=== PATIENT | female | born 1935 | race Caucasian/White ===

== ENCOUNTER → 2017-01-05 | Outpatient (CLI) | payer MEDICARE, BC ==
--- NOTE | 2017-01-05 17:13 | RADRPT ---
PROCEDURE: XR Right hip and pelvis. CLINICAL INDICATION: Right hip pain and pelvic pain. TECHNIQUE: 3 views. Frontal pelvis. Frontal and lateral right hip. COMPARISON: None. FINDINGS: There is no fracture or dislocation. The soft tissues are normal. There are degenerative changes of the right hip with joint space narrowing, osteophytes, subarticula r sclerosis, subarticular cysts, and deformity. The left hip is normal. There is no lytic or blastic lesion. There are degenerative changes of the lower lumbar spine. IMPRESSION: 1. Severe degenerative changes of the right hip appear 2. Normal left hip. 3. Degenerative changes of the lower lumbar spine. RPTAT: QQ .Ken Carlson MD, Date Time Electronically viewed and signed by .Ken Carlson MD, on 01/05/2017 17:13 .R/
--- NOTE | 2017-01-06 05:14 | HKNOTE ---
DATE OF SERVICE: 01/05/2017 MAIN COMPLAINT: Right groin pain. HISTORY OF PRESENT ILLNESS: This is an 81-year-old female, who is complaining of right groin pain for the last 2 years. The pain has progressively been worsening. She has difficulty ambulating. She is using a walker for ambulation. She has had previous physical therapy and pain medications without any pain relief. She had a right hip corticosteroid injection within the last 6 months without any pain relief. The pain is constant. It is interfering with her activities of daily living. There are no alleviating factors. She has difficulty climbing stairs and sitting in a car. She denies any back pain. The pain radiates from the right groin to the right knee. PAST MEDICAL HISTORY: Grave's disease. MEDICATIONS: 1. Levothyroxine 50 mcg. 2. Atenolol 50 mg. PAST SOCIAL HISTORY: Thyroid ablation. SOCIAL HISTORY: Lives alone. Denies tobacco, alcohol, or drug use. FAMILY HISTORY: Noncontributory. ALLERGIES: NO KNOWN DRUG ALLERGIES. PHYSICAL EXAMINATION: GAIT: Antalgic gait with use of a walker. LUMBAR SPINE: Nontender over the lumbar spine. Negative straight leg raise, 50 degrees flexion and 20 degrees extension. HIPS: Right hip: 0-90 degrees of flexion, 40 degrees of external rotation, 20 degrees of internal rotation. Positive Freya's. Negative Stinchfield test. IMAGING: AP x-ray, pelvis: There is advanced degenerative joint disease of the right hip. Two-view x-rays of the right hip: There is as severe degenerative joint disease of the right hip with [id number] arthritic changes. There are marginal osteophytes with subchondral sclerosis. There are no fractures or dislocations. There is a slight right lower extremity shortening. IMPRESSION: An 81-year-old female with advanced osteoarthritis of the right hip with failed nonoperative management. PLAN: I discussed treatment options including right total hip arthroplasty, with the patient and her daughter. The patient would like to proceed with surgery. She will require preoperative medical clearance. She will return prior to surgery for consent and reevaluation. She will be scheduled for a right anterior total hip arthroplasty. Dictated By: Laura Miguel MD /dallin/ratna /Document#: [id number]
== END | disposition home or self-care (01) ==
LOC: HKI 13:54
PROVIDERS: ATTEND Orthopaedic Surgery Adult Reconstructive Orthopaedic Surgery
DX: M16.11 Unilateral primary osteoarthritis, right hip (principal); E05.00 Thyrotoxicosis with diffuse goiter without thyrotoxic crisis or storm
CPT/HCPCS: 73502; G0463

== ENCOUNTER → 2017-01-31 | Outpatient (CLI) | payer MEDICARE, BC ==
[~2017-01-31] MED LIST: ACET500C5 PO; BEN25 PO; LEVO50TA74 PO; LORA1TAB PO; METO-319 PO; TRAM50TA2 PO
--- NOTE | 2017-02-01 03:37 | HKNOTE ---
DATE OF SERVICE: 01/31/2017 CHIEF COMPLAINT: Preoperative evaluation. HISTORY OF PRESENT ILLNESS: This is an 81-year-old female who is here today for a preoperative eval uation for right total hip arthroplasty. She is complaining of pain in the right groin. She has di fficulty performing her activities of daily living. She has no other complaints. GAIT: Antalgic gait. RIGHT HIP EXAMINATION: 0 to 90 degrees range of motion, 20 degrees internal rotation, 40 degrees ex ternal rotation. Positive Freya's. Negative straight leg raise. IMPRESSION: An 81-year-old female with endstage osteoarthritis of the right hip who has failed nono perative management. PLAN: The patient is scheduled for right direct anterior total hip arthroplasty on 02/01/2017 at [facility]. Preoperative templating has been performed. I discussed the risks of surgery with the patient and her daughter, which include, but are not limit ed to, infection, deep venous thrombosis, pulmonary embolism, damage to nerves and blood vessels, im pairing function or requiring repair, instability, need for revision surgery, loosening of prosthesi s, wear of prosthesis, heart attack, stroke, need for blood transfusion, risks associated with anest hesia and even . Informed consent was obtained. All questions were answered to her satisfacti on. Dictated By: CANDIS LEOS/CHASIDY Conf#: [id number] DID#: [id number]
== END | disposition home or self-care (01) ==
LOC: HKI 13:31
PROVIDERS: ATTEND Orthopaedic Surgery Adult Reconstructive Orthopaedic Surgery
DX: Z01.818 Encounter for other preprocedural examination (principal)
CPT/HCPCS: G0463

== ENCOUNTER 2017-02-01 05:54 | Inpatient (IN) | payer MEDICARE, BC ==
[2017-01-31 10:48] VITALS: Ht 152.4 cm; Wt 57.5 kg
[~2017-02-01] VITALS: Ht 152.4 cm; Wt 57.5 kg
[2017-02-01] VITALS (24 sets, daily range): BP systolic 81–218; BP diastolic 48–96; PULSE 48–59; RESP 11–27
[2017-02-01] MEDS ORDERED: NEOSTIGMINE 3 MG/3 ML SYRINGE ONE (06:24)
[2017-02-01] MEDS ORDERED: GLYCOPYRROLATE 0.4 MG INJ ONE (06:24)
[2017-02-01] MEDS ORDERED: MIDAZOLAM 1 MG/ML 2 ML INJ ONE (06:24)
[2017-02-01] MEDS ORDERED: ROCURONIUM 50 MG INJ ONE (06:24)
[2017-02-01] MEDS ORDERED: LIDOCAINE 2% (SDV) 5 ML INJ ONE (06:24)
[2017-02-01] MEDS ORDERED: FENTAnyl 50 MCG/ML VIAL ONE (06:24)
[2017-02-01] MEDS ORDERED: PROPOFOL 20 ML ONE (06:24)
[2017-02-01] MEDS ORDERED: DEXAMETHASONE 4 MG/ML 1 ML INJ ONE (06:25)
[2017-02-01] MEDS ORDERED: ONDANSETRON 4 MG INJ ONE (06:26)
[2017-02-01] MEDS ORDERED: SUGAMMADEX SODIUM 200 MG/2 ML VIAL IV ONE (06:26)
[2017-02-01] MEDS ORDERED: CEFAZOLIN 2 GM/50 ML (PMX) 50 ML IVPB ONE (06:30)
[2017-02-01] MEDS ORDERED: DEXAMETHASONE 4 MG/ML 1 ML INJ IV ONE (06:30)
[2017-02-01] MEDS ORDERED: ATROPINE 1 MG/10 ML SYRINGE IV PRN (06:30)
[2017-02-01] MEDS ORDERED: MEPERIDINE 25 MG INJ IV PRN (06:30)
[2017-02-01] MEDS ORDERED: ONDANSETRON 4 MG INJ IV ONE (06:30)
[2017-02-01] MEDS ORDERED: DIPHENHYDRAMINE 50 MG INJ IV PRN (06:30)
[2017-02-01] MEDS ORDERED: HYDROmorphONE (0.2 MG/ML) 10ML SYG IV PRN ×3 (06:30)
[2017-02-01] MEDS ORDERED: TRANEXAMIC ACID 1,000 MG in SOD CHLORIDE 0.9% 100 ML IV ONE (06:30)
[2017-02-01] MEDS ORDERED: EPHEDrine SULFATE 50 MG/5 ML SYG IV PRN (06:30)
[2017-02-01] MEDS ORDERED: CELECOXIB 200 MG CAP PO ONE (06:30)
[2017-02-01] MEDS ORDERED: LANSOPRAZOLE 30 MG CAP PO ONE (06:30)
[2017-02-01] MEDS ORDERED: ONDANSETRON 4 MG INJ IV PRN (06:30)
[2017-02-01] MEDS ORDERED: LABETALOL HCL 20MG INJ IV PRN (06:30)
[2017-02-01] MEDS ORDERED: oxyCODONE (CR) 10 MG TAB [oxyCONTIN] PO ONE (06:30)
[2017-02-01] MEDS ORDERED: FENTAnyl 50 MCG/ML VIAL IV PRN ×2 (06:30)
[2017-02-01] MEDS ORDERED: MIDAZOLAM 1 MG/ML 2 ML INJ IV PRN (06:30)
[2017-02-01] MEDS ORDERED: morphine (1 MG/ML) 10ML SYRINGE IV PRN ×3 (06:30)
[2017-02-01] MEDS ORDERED: hydrALAzine 20 MG INJ IV PRN (06:30)
[2017-02-01] MEDS ORDERED: OXYCODONE/ACETAMINOPHEN (5/325) TAB PO PRN ×2 (06:30)
[2017-02-01] MEDS ORDERED: ACETAMINOPHEN 1000MG/100ML IV 100 ML IVPB ONE (06:30)
[2017-02-01] MEDS ORDERED: SODIUM CL BACTERIOSTATIC 30 ML INJ ONE (06:33)
[2017-02-01] MEDS ORDERED: POLYMYXIN B 500000 UNIT INJ ONE (06:33)
[2017-02-01] MEDS ORDERED: KETOROLAC 30 MG INJ ONE (06:34)
[2017-02-01] MEDS ORDERED: morphine SULFATE/PF (10 MG/10 ML) INJ ONE (06:34)
[2017-02-01] MEDS ORDERED: BACITRACIN 50000 UNITS INJ ONE (06:37)
[2017-02-01] MEDS ORDERED: POLYMYXIN/BACITRACIN 1L IRRIG ONE (06:37)
[2017-02-01] MEDS ORDERED: ROPIVACAINE 0.2% 60 ML, morphine SULFATE (PF) 4 MG, CLONIDINE 100 MCG, EPINEPHrine 0.3 MG INJ SCH ×7 (07:00)
[2017-02-01] MEDS ORDERED: CEFAZOLIN 1 GM INJ ONE (07:00)
[2017-02-01] MEDS ORDERED: PROPOFOL 100 ML ONE (07:09)
--- NOTE | 2017-02-01 07:25 | HPN ---
Date/Time of Note Date/Time of Note DATE: 02/01/17 TIME: 07:25 Interval H&P Admission Note Pt. seen H&P reviewed: No system changes DARA GARZA PA-C Feb 01, 2017 07:25
[2017-02-01] MEDS ORDERED: TRANEXAMIC ACID IRR ONE (07:30)
[2017-02-01] MEDS ORDERED: SOD CHLORIDE 0.9% IRR ONE (07:30)
[2017-02-01] MEDS ORDERED: hydrALAzine 20 MG INJ ONE (07:45)
[2017-02-01] MEDS ORDERED: METO-319 PO (07:49)
[2017-02-01] MEDS ORDERED: TRAM50TA2 PO (07:49)
[2017-02-01] MEDS ORDERED: LEVO50TA74 PO (07:49)
[2017-02-01] MEDS ORDERED: ACET500C5 PO (07:49)
[2017-02-01] MEDS ORDERED: BEN25 PO (07:49)
[2017-02-01] MEDS ORDERED: LORA1TAB PO (07:49)
[2017-02-01] MEDS ORDERED: FUROSEMIDE 20 MG INJ ONE (09:30)
[2017-02-01] MEDS ORDERED: LIDOCAINE 4% CR ONE (09:37)
--- NOTE | 2017-02-01 10:22 | SIPON ---
Date/Time of Note Date/Time of Note DATE: 02/01/17 TIME: 10:19 Operative Report Preoperative Diagnosis Right hip osteoarthritis Postoperative Diagnosis Same Operation/Procedure Performed 1. Right total hip arthroplasty Surgeon MD Myriam kennel assistant Mahesh Graham Second assist: DARA GARZA PA-C Anesthesia: general Estimated blood loss: 200 - 250 ml's Transfusion Required none Specimen Resected Bone Grafts/Implants Depuy 48 mm acetabulum, 25mm screw, 32mm liner, size Corail stem, 32mm biolox delta ceramic femoral head Complications none CANDIS MONTES MD Feb 01, 2017 10:22
[2017-02-01] MEDS ORDERED: BISACODYL 10 MG SUPP PR PRN (10:30)
[2017-02-01] MEDS ORDERED: MEPERIDINE 10 MG/ML 30 ML PCA IV PRN (10:30)
[2017-02-01] MEDS ORDERED: NA PHOSPHATE/BIPHOS 133 ML ENEMA PR PRN (10:30)
[2017-02-01] MEDS ORDERED: oxyCODONE 5 MG TAB PO PRN ×2 (10:30)
[2017-02-01] MEDS ORDERED: BETHANECHOL 25 MG TAB PO PRN (10:30)
[2017-02-01] MEDS ORDERED: NALOXONE (0.4 MG/ML) INJ IV PRN (10:30)
[2017-02-01] MEDS ORDERED: MAGNESIUM HYDROXIDE 30ML CUP PO PRN (10:30)
[2017-02-01] MEDS ORDERED: ZOLPIDEM 5 MG TAB PO PRN (10:30)
[2017-02-01] MEDS ORDERED: ASPIRIN (EC) 325 MG TAB PO ONE ×2 (10:30→11:03)
[2017-02-01] MEDS ORDERED: SENNA/DOCUSATE NA (8.6MG/50MG) TAB PO PRN (10:30)
[2017-02-01] MEDS ORDERED: DIPHENHYDRAMINE 50 MG INJ IM PRN (10:30)
[2017-02-01] MEDS ORDERED: HYDROmorphONE 0.2 MG/ML PCA IV PRN (10:30)
[2017-02-01] MEDS ORDERED: NACL 0.9% 3 ML SYG IV SCH (10:30)
[2017-02-01] MEDS ORDERED: DOCUSATE SODIUM 100 MG CAP PO ONE ×2 (10:30→11:03)
--- NOTE | 2017-02-01 10:32 | PDOCDIS ---
Discharge Instructions DIAGNOSIS Discharge Diagnosis Status post right total hip arthroplasty via anterior row CONDITION Patient Condition: Good HOME CARE INSTRUCTIONS: Diet Instructions: Regular ACTIVITY: Activity Restrictions: Slowly Increase Activity Rest between Activity Avoid heavy lifting No Sexual Activity Do not Drive Do not operate Machinery Do not operate Power Tool Avoid Heavy Housework Keep Limb Elevated (Ice modalities while at rest.) Weight Bearing (As tolerated using front wheeled walker) Bathing Restrictions: Shower (Make sure the area is covered with no water introduction until seen at postoperative visit with Dr. Jimenez.) FOLLOW UP/APPOINTMENTS Follow-up Plan Follow-up in 10-14 days at postoperative appointment provided at your preoperative examination. DARA GARZA PA-C Feb 01, 2017 10:32
[2017-02-01] MEDS ORDERED: CEFAZOLIN 1 GM/50 ML (PMX) 50 ML IVPB ONE (11:03)
[2017-02-01] MEDS: ACETAMINOPHEN 1000MG/100ML IV 100 ML IVPB SCH ×2 (11:16→17:49)
[2017-02-01] MEDS: ONDANSETRON 4 MG INJ IV SCH ×3 (11:17→22:59)
[2017-02-01] MEDS: CEFAZOLIN 1 GM/50 ML (PMX) 50 ML IVPB SCH ×2 (11:17→17:52)
[2017-02-01] MEDS ORDERED: TRANEXAMIC ACID 580 MG in SOD CHLORIDE 0.9% 100 ML IVPB ONE ×2 (13:30→16:30)
[2017-02-01] MEDS: DEXTROSE 5%-LR 1,000 ML IV SCH ×2 (13:57→22:52)
--- NOTE | 2017-02-01 16:41 | RADRPT ---
PROCEDURE: XR RIGHT HIP. CLINICAL INDICATION: Hip pain TECHNIQUE: 2 views of the right hip were performed. COMPARISON: January 05, 2017 FINDINGS: There is no evidence of acute fracture dislocation of the right hip. Status post right hip total art hroplasty, with near anatomic alignment. Adjacent postsurgical changes are noted. There is soft tiss ue swelling and subcutaneous air. The adjacent pubic ramus is within normal limits. IMPRESSION: 1. Status post right hip arthroplasty, with near anatomic alignment. Postsurgical changes are noted. RPTAT: AAPP Physician Jorge A Date Time Electronically viewed and signed by Physician Jorge A on 02/01/2017 16:41 GINO/
--- NOTE | 2017-02-01 16:54 | RADRPT ---
PROCEDURE: Pelvis radiographs CLINICAL INDICATION: Postoperative evaluation. COMPARISON: None relevant listed. TECHNIQUE: Single frontal AP view of the pelvis was performed. FINDINGS: Subcutaneous emphysema and swelling about a new right hip arthroplasty. Alignment of the total hip arthroplasty is anatomic. Trevino catheter. Nonoperative joint spaces are preserved. The sacroiliac joints are intact. No localized soft tissue swelling. IMPRESSION: Anatomic alignment of new right total hip arthroplasty. RPTAT: EE Physician Naheed Date Time Electronically viewed and signed by Physician Naheed on 02/01/2017 16:54 LG/
--- NOTE | 2017-02-01 18:01 | RADRPT ---
PROCEDURE: Intraoperative imaging of the right hip with fluoroscopy. CLINICAL INDICATION: Right hip pain. Intraoperative. TECHNIQUE: 8 images of the right hip were obtained in the operating room with an image intensifier . No radiologist was in attendance. 0.4 minutes of fluoroscopy time was used. COMPARISON: 01/05/2017. FINDINGS: Images demonstrate placement of a total right hip arthroplasty. IMPRESSION: 1. Satisfactory intraoperative imaging of the right hip. RPTAT: QQ .Ken Carlson MD, MD Date Time Electronically viewed and signed by .Ken Carlson MD, on 02/01/2017 18:01 .R/
[2017-02-01] MEDS: LORAZEPAM 1 MG TAB PO PRN (19:49)
[2017-02-01] MEDS: GABAPENTIN 100 MG CAP GTB SCH (22:59)
[2017-02-02] MEDS: ACETAMINOPHEN 1000MG/100ML IV 100 ML IVPB SCH ×3 (01:55→16:26)
[2017-02-02] MEDS: CEFAZOLIN 1 GM/50 ML (PMX) 50 ML IVPB SCH (02:28)
[2017-02-02 05:19] LABS: BASOPHILS % 0.1 % (0.0-2.0); EOSINOPHILS % 0.1 % (0.0-7.0); HEMATOCRIT 28.5 % (37.0-47.0); HEMOGLOBIN 9.5 g/dl (12.0-16.0); LYMPHOCYTES # 1.5 10^3/ul (0.8-2.9); LYMPHOCYTES % 12.7 % (15.0-51.0); MEAN CORPUSCULAR HEMOGLOBIN 30.8 pg (29.0-33.0); MEAN CORPUSCULAR HGB CONC 33.3 g/dl (32.0-37.0); MEAN CORPUSCULAR VOLUME 92.5 fl (82.0-101.0); MEAN PLATELET VOLUME 11.5 fl (7.4-10.4); MONOCYTE # 1.2 10^3/ul (0.3-0.9); MONOCYTES % 10.7 % (0.0-11.0); NEUTROPHIL # 8.8 10^3/ul (1.6-7.5); PLATELET COUNT 255 10^3/UL (140-415); RED BLOOD COUNT 3.08 10^6/ul (4.20-5.40); RED CELL DISTRIBUTION WIDTH 13.9 % (11.5-14.5); WHITE BLOOD COUNT 11.5 10^3/ul (4.8-10.8)
[2017-02-02] MEDS: ONDANSETRON 4 MG INJ IV SCH (05:45)
[2017-02-02] MEDS: PANTOPRAZOLE (EC) 40 MG TAB PO SCH (05:45)
[2017-02-02] MEDS: DEXTROSE 5%-LR 1,000 ML IV SCH ×2 (05:56→23:52)
[2017-02-02] MEDS ORDERED: KETOROLAC 15 MG INJ INJ PRN (06:00)
[2017-02-02] MEDS ORDERED: BUPIVACAINE 0.25%/EPI (SDV) 30 ML INJ INJ PRN (06:00)
[2017-02-02 06:03] LABS: ALBUMIN 3.5 g/dl (3.3-4.9); ALBUMIN/GLOBULIN RATIO 1.29; BILIRUBIN,INDIRECT 0.4 mg/dl (0-1.1); BILIRUBIN,TOTAL 0.4 mg/dl (0.2-1.3); CALCIUM 8.7 mg/dl (8.4-10.2); CREATININE 0.57 mg/dl (0.44-1.00); POTASSIUM 3.6 mmol/L (3.5-5.1); TOTAL PROTEIN 6.2 g/dl (6.1-8.1)
[2017-02-02] MEDS: LEVOTHYROXINE 50 MCG TAB PO SCH (06:20)
[2017-02-02] MEDS: DEXAMETHASONE 4 MG/ML 1 ML INJ IV SCH (06:30)
[2017-02-02 07:30] VITALS: BP 141/67; RESP 19
--- NOTE | 2017-02-02 07:51 | PN ---
Date/Time of Note Date/Time of Note DATE: 02/02/17 TIME: 07:49 Assessment/Plan VTE Prophylaxis VTE Prophylaxis Intervention: ambulation, SCD's, other (Aspirin 325 mg twice daily) Lines/Catheters IV Catheter Type (from Nrs): Peripheral IV Trevino in Place (from Nrsg): Yes Assessment/Plan Assessment/Plan -Pain Meds as needed -ASA for DVT Prophylaxis x 6 weeks outpatient discussed. -Continue monitoring as outpatient on discharge -Follow-up at scheduled postop outpatient appointment or sooner if there is any issue. -Hip precautions discussed -Patient Stable -Discharge to Home with home health provided by [facility] Subjective 24 Hr Interval Summary 81-year-old female postop day 1 status post right total hip arthroplasty via anterior route. Patient was doing okay. Experiencing pain immediately postoperatively but now complains of no pain. Patient has been up and walking with use of front wheeled walker. Denies any chest pain/tightness. Denies any calf pain. Doing well with plans to be discharged home today. Constitutional: no complaints Pain Control: well controlled Exam/Review of Systems Vital Signs Vitals Vital Signs Date Time Temp Pulse Resp B/P Pulse Ox O2 Delivery O2 Flow Rate FiO2 02/02/17 07:30 98.0 61 19 141/67 98 02/01/17 15:10 Room Air 02/01/17 11:38 2.0 Intake and Output 02/01/17 02/01/17 02/02/17 15:00 23:00 07:00 Intake Total 1990 ml 550 ml 150 ml Output Total 650 ml 300 ml Balance 1340 ml 250 ml 150 ml Exam Free Text/Dictation -No complications with dressing intact. -Thigh soft -5/5 Quadriceps, Tibialis Anterior, EHL Gastrocnemius/Soleus and Peroneals -Normal Sensation -Palpable DP/PT, Capillary Refill <2 secs -No Distal Edema -Negative Johny Sign/No calf pain -Toes Freely Movable Constitutional: alert Results Result Diagram: 02/02/17 0440 02/02/17 0438 DARA GARZA PA-C Feb 02, 2017 07:51
--- NOTE | 2017-02-02 08:38 | CONS ---
DATE OF ADMISSION: 02/01/2017 DATE OF CONSULTATION: MEDICAL CONSULTATION Thank you, Dr. Miguel, for asking me to participate in medical management of this patient. REASON FOR CONSULTATION: To manage the patient's hypertension and hypothyroidism. HISTORY OF PRESENT ILLNESS: This 81-year-old female was admitted today and underwent a right total hip replacement. The patient was having increasing pain in the right groin area and was diagnosed w ith severe osteoarthritis. She was having difficulty walking. She decided to undergo a total hip r eplacement. The patient is now postop. She is awake and alert. She denies any chest pain or short ness of breath. There is a note on the chart from Dr. Steffen Umanzor, her school childcare attendant, this detail s the patient's past medical history. PAST MEDICAL HISTORY: Labile hypertension, generalized anxiety disorder, history of Graves' disease , osteoporosis, history of shingles. CURRENT MEDICATIONS: Include the followin. Benadryl 25 mg every 6 hours as needed for itching. 2. Metoprolol XL 50 mg a day. 3. Acetaminophen p.r.n. pain. 4. Lorazepam 1 mg p.o. b.i.d. p.r.n. anxiety. 5. Tramadol 50 mg every 6 hours p.r.n. pain. 6. Levothyroxine 50 mcg a day. SOCIAL HISTORY: The patient is . ALLERGIES: NO KNOWN DRUG ALLERGIES. PHYSICAL EXAMINATION: GENERAL: At this time, reveals a well-developed female in no apparent distress. VITAL SIGNS: Blood pressure 117/56, pulse of 55, O2 sat is 100% on 2 liters nasal cannula. HEAD: Normocephalic. EYES: Extraocular muscles intact. NOSE AND MOUTH: Normal. NECK: Supple. No neck vein distention. LUNGS: Clear to auscultation. HEART: Regular rhythm. No murmurs, gallops or rubs. ABDOMEN: Soft, nontender, no masses or megaly. EXTREMITIES: No peripheral edema. IMPRESSION: This patient is stable after surgery today. She does have a history of labile hyperten mannie. She did take her metoprolol this morning. I will hold the dose of metoprolol for now because her blood pressure is now low normal. She is tolerating this without a problem. I will manage the patient's hypertension and hypothyroidism. PLAN: 1. Resume some routine medications. 2. Check labs in the morning. 3. Postop total hip replacement protocol. 4. I will follow the patient along with you. Dictated By: ADRIA MELO MD, ND/CHASIDY Conf#: [id number] DID#: [id number] CC: CANDIS MIGUEL MD;*EndCC*
--- NOTE | 2017-02-02 08:40 | OPR ---
DATE OF OPERATION: 02/01/2017 PREOPERATIVE DIAGNOSIS: Right hip osteoarthritis. POSTOPERATIVE DIAGNOSIS: Right hip osteoarthritis. PROCEDURES PERFORMED: 1. Right total hip arthroplasty. CPT code 43365. 2. Computer assisted navigational procedure, CPT code 22280. 3. Interpretation of AP x-ray. 4. Interpretation of right hip, 2 views. SURGEON: Candis Miguel. FINISH SANDER: 1. JESUS Adam 2. Mahesh Graham. ANESTHESIOLOGIST: Dr. Heller. ANESTHESIA: Spinal with general. ESTIMATED BLOOD LOSS: 300 mL. COMPLICATIONS: None. SPECIMENS: Resected bone. DISPOSITION: PACU in stable condition. IMPLANT USED: A DePuy Corail size 10 stem, 32 mm +1 Biolox Delta ceramic femoral head, 48 mm acetabular screws, 32 mm liner, 25 mm cancellous screw. COMPLICATIONS: None. DISPOSITION: To PACU in stable condition. INDICATION FOR PROCEDURE: This is an 81-year-old female with endstage osteoarthritis of the right hip who had failed nonoperative management. Risks, benefits, alternatives of surgical intervention were discussed with the patient and informed consent was obtained. The risks of surgery include but are not limited to infection, deep venous thrombosis, pulmonary embolism, leg length discrepancy, fracture, damage to neurovascular structures requiring repair, loosening of the prosthesis, wear of prosthesis, need for revision surgery, heart attack, stroke, need for blood transfusion, risks associated with anesthesia and even . DESCRIPTION OF PROCEDURE: The patient was met in the preoperative suite and the correct operative site was confirmed and marked. Patient was then brought into operating room. After induction of general anesthesia, she was placed in the supine position on the table. The right lower extremity was prepped and draped in the usual sterile fashion. Before starting, a timeout was taken to identify the correct operative site and confirm the preoperative antibiotics consisting of 1 gram of IV Ancef, along with 1 gram of tranexamic acid were administered. At this point, an 8 cm incision was made approximately 2 cm lateral and 1 cm distal to the ASIS. The incision was carried down to the fascia. The fascia was then incised. Then, 2 Allis clamps were placed. The interval was then bluntly developed and the tensor fascia noe was then retracted laterally. The lateral circumflex vessels were identified and coagulated. The anterior capsule was then visualized and a capsulotomy was performed. At this point, markings were made for the napkin ring osteotomy of the femoral neck. Using the saw the initial osteotomy was then made and completed with the use of an osteotome. A Brandi was then used to remove the napkin ring and a corkscrew was then placed in the femoral head and the head was then removed. The head was sized to 43 mm. Sequential reaming was begun with a 43 mm reamer, going up to a 47 mm reamer. A trial 48 mm cup was then impacted and the radlink was then used to determine the appropriate anteversion and abduction of the cup. The cup was noted to be in approximately 37 mm of inclination and 37 degrees of inclination and 21 degrees of anteversion and the trial was then removed. The appropriate size cup was then placed and again the radlink was used to determine the inclination and anteversion. At this point, a 25 mm screw was then placed in the posterior superior quadrant. The 32 mm liner was then impacted into place and the final acetabular x-rays were taken which again demonstrated the cup to be in appropriate abduction and anteversion. At this point, the femoral lift was then used and the right leg was then placed in external rotation, 8 extension, and adduction. Retractors were placed and the femoral releases were performed using a box osteotome followed by a canal finder. Sequential broaching was begun with a 0 broach going up to a size 10 broach. The trial 10 mm standard offset stem along with a 32 mm +1 trial head and neck were placed. The hip was then reduced and taken through range of motion, noted to be stable in extension and external rotation of up to 110 degrees. X-RAYS: AP x-rays of the pelvis and right hip, 2 view x-rays were taken. The x -rays demonstrated the prosthesis to be in the correct position with equal leg lengths. The trial components were then removed. The appropriate sized components were then placed. The hip was again reduced with unchanged stability and equal leg lengths and no fractures were seen. The hip was again taken through range of motion and noted to be stable to extension and external rotation. The wound was then thoroughly irrigated. The capsule and the fascia were closed using #1 Vicryl. The subcutaneous tissue was closed using 0 Vicryl and the skin with 4-0 Monocryl in subcuticular fashion and Steri-Strips were applied. There were no complications. Patient was awakened and taken to postoperative care unit in stable condition. Prior to transfer. she was noted to have equal leg lengths and a palpable dorsalis pedis pulse. POSTOPERATIVE CARE: Patient will be weightbearing as tolerated. She will work with physical therapy. She will receive two additional doses of IV Ancef along with aspirin 325 mg p.o. b.i.d. for 6 weeks. She will have SCDs while in the hospital. Upon discharge, she will follow up in my office within 2 weeks postoperatively. She will receive multimodal pain management. Dictated By: CANDIS LEOS/CHASIDY Conf#: [id number] DID#: [id number] MTDD
[2017-02-02] MEDS: CELECOXIB 200 MG CAP PO SCH ×2 (09:00→21:00)
[2017-02-02] MEDS: GABAPENTIN 100 MG CAP GTB SCH ×2 (09:27→21:00)
[2017-02-02] MEDS: FERROUS FUMARATE (SR) TAB PO SCH ×2 (09:27→21:00)
[2017-02-02] MEDS: ASPIRIN (EC) 325 MG TAB PO SCH ×2 (09:27→21:00)
[2017-02-02] MEDS: DOCUSATE SODIUM 100 MG CAP PO SCH ×2 (09:27→21:00)
[2017-02-02] MEDS: oxyCODONE 5 MG TAB PO PRN ×2 (09:36→10:40)
--- NOTE | 2017-02-02 09:53 | CONS ---
Date/Time of Note Date/Time of Note DATE: 02/02/17 TIME: 09:51 Assessment/Plan Assessment/Plan Chief Complaint/Hosp Course 1. This patient is now one day postop a right total hip replacement. She is doing well. She will have physical therapy as tolerated. 2. Labile hypertension. I will cautiously restart her on metoprolol XL 25 mg a day for now and monitor blood pressure and pulse. 3. Hypothyroidism. She is on thyroid supplements. Problems: Consultation Date/Type/Reason Admit Date/Time Feb 01, 2017 at 05:54 Initial Consult Date 24 HR Interval Summary Free Text/Dictation This patient is now one day postop a right total hip replacement. She is awake and alert. Constitutional: improved, no complaints Exam/Review of Systems Vital Signs Vitals Vital Signs Date Time Temp Pulse Resp B/P Pulse Ox O2 Delivery O2 Flow Rate FiO2 02/02/17 07:30 98.0 61 19 141/67 98 02/01/17 15:10 Room Air 02/01/17 11:38 2.0 Intake and Output 02/01/17 02/01/17 02/02/17 15:00 23:00 07:00 Intake Total 1990 ml 550 ml 150 ml Output Total 650 ml 300 ml Balance 1340 ml 250 ml 150 ml Exam Constitutional: alert, frail, oriented Neck: non-tender, supple Respiratory: clear to auscultation, normal air movement Cardiovascular: regular rate and rhythm Gastrointestinal: non-tender, soft Musculoskeletal: nl extremities to inspection Results Result Diagram: 02/02/17 0440 02/02/17 0438 Results 24 hrs Laboratory Tests Test 02/02/17 04:38 02/02/17 04:40 Sodium Level 138 Potassium Level 3.6 Chloride Level 104 Carbon Dioxide Level 25 Anion Gap 13 Blood Urea Nitrogen 10 Creatinine 0.57 Glucose Level 116 Calcium Level 8.7 Total Bilirubin 0.4 Direct Bilirubin 0.00 Indirect Bilirubin 0.4 Aspartate Amino Transf (AST/SGOT) 45 Alanine Aminotransferase (ALT/SGPT) 31 Alkaline Phosphatase 67 Total Protein 6.2 Albumin 3.5 Globulin 2.70 Albumin/Globulin Ratio 1.29 White Blood Count 11.5 H Red Blood Count 3.08 L Hemoglobin 9.5 L Hematocrit 28.5 L Mean Corpuscular Volume 92.5 Mean Corpuscular Hemoglobin 30.8 Mean Corpuscular Hemoglobin Concent 33.3 Red Cell Distribution Width 13.9 Platelet Count 255 Mean Platelet Volume 11.5 H Neutrophils % 76.0 Lymphocytes % 12.7 L Monocytes % 10.7 Eosinophils % 0.1 Basophils % 0.1 Nucleated Red Blood Cells % 0.0 Neutrophils # 8.8 H Lymphocytes # 1.5 Monocytes # 1.2 H Eosinophils # 0.0 Basophils # 0.0 Nucleated Red Blood Cells # 0.0 Medications Medications Current Medications Dextrose/Lactated Ringer's (D5-Lr) 1,000 ml @ 80 mls/hr [id number] IV Last administered on 02/02/17 05:56; Admin Dose 80 MLS/HR; Start 02/01/17 at 10:22 Hydromorphone HCl (Dilaudid FOREMAN/PILE DRIVING AND ERECTION) Q4PCA PRN IV SEVERE PAIN 8-10; Start at 10:30; Stop 02/02/17 at 10:29 Meperidine HCl (Demerol FOREMAN/PILE DRIVING AND ERECTION) Q4PCA PRN IV SEVERE PAIN 8-10; Start 02/01/17 at 10:30; Stop 02/02/17 at 10:29; Status Future Hold Oxycodone HCl (Roxicodone) 20 mg Q3H PRN PO PAIN LEVEL 8-10; Start 02/01/17 at 10:30 Oxycodone HCl (Roxicodone) 10 mg Q3H PRN PO PAIN LEVEL 4-7; Start 02/01/17 at 10:30 Oxycodone HCl 5 mg 5 mg Q3H PRN PO PAIN LEVEL 1-3 Last administered on 09:36; Admin Dose 5 MG; Start 02/01/17 at 10:30 Acetaminophen (Ofirmev 1000mg/ 100ml Iv) 100 ml @ 400 mls/hr Q8H IVPB Last administered on 02/02/17 01:55; Admin Dose 400 MLS/HR; Start 02/01/17 at 10: 30; Stop 02/03/17 at 02:44 Zolpidem Tartrate (Ambien) 5 mg HS PRN PO INSOMNIA; Start 02/01/17 at 10:30 Aspirin (Ecotrin) 325 mg BID PO Last administered on 02/02/17 09:27; Admin Dose 325 MG; Start 02/02/17 at 09:00 Celecoxib (Celebrex) 200 mg BID PO ; Start 02/02/17 at 09:00 Dexamethasone (Decadron) 4 mg DAILY@07 IV ; Start 02/02/17 at 07:00; Stop at 06:59 Pantoprazole (Protonix Tab) 40 mg DAILY@06 PO Last administered on 02/02/17 05:45; Admin Dose 40 MG; Start 02/02/17 at 06:00 Docusate Sodium/ Ferrous Fumarate (Ron-Sequels) 1 tab BID PO Last administered on 02/02/17 09:27; Admin Dose 1 TAB; Start 02/02/17 at 09:00 Docusate Sodium (Colace) 200 mg BID PO Last administered on 02/02/17 09:27; Admin Dose 200 MG; Start 02/02/17 at 09:00; Stop 02/04/17 at 21:01 Simethicone (Mylicon) 80 mg TID PRN PO DISTENSION/GAS/BLOATING; Start at 10:30 Senna/Docusate Sodium (Senokot-S) 2 tab BID PRN PO CONSTIPATION; Start at 10:30 Magnesium Hydroxide (Milk Of Mag) 30 ml HS PRN PO CONSTIPATION; Start at 10:30 Bisacodyl (Dulcolax Supp) 10 mg DAILY PRN MD CONSTIPATION; Start 02/01/17 at 10:30 Sodium Biphosphate/ Sodium Phosphate (Fleet Enema) 133 ml DAILY PRN MD CONSTIPATION; Start 02/01/17 at 10:30 Diphenhydramine HCl (Benadryl) 25 mg Q4H PRN IM ITCHING OR RASH; Start at 10:30 Ketorolac Tromethamine (Toradol) 15 mg DAILY@06 PRN INJ ADMINSTER BY SURGEON ONLY; Start 02/02/17 at 06:00; Stop 02/06/17 at 05:59 Bupivacaine HCl/ Epinephrine Bitart (Marcaine 0.25%/ Epi (Sdv) 30 ml) 20 ml DAILY@06 PRN INJ ADMINSTER BY SURGEON ONLY; Start 02/02/17 at 06:00; Stop at 05:59 Naloxone HCl (Narcan) 0.2 mg Q2M PRN IV DECREASED REPIRATORY RATE; Start at 10:30 Gabapentin (Neurontin) 100 mg BID GTB Last administered on 02/02/17 09:27; Admin Dose 100 MG; Start 02/01/17 at 21:00; Stop 02/04/17 at 20:59 Influenza Virus Vaccine (Fluzone) 0.5 ml ONCE ONCE IM* ; Start 02/02/17 at 12: 30; Stop 02/02/17 at 12:31 Lorazepam (Ativan) 1 mg BID PRN PO ANXIETY Last administered on 02/01/17 19: 49; Admin Dose 1 MG; Start 02/01/17 at 13:30 ADRIA MELO MD Feb 02, 2017 09:53
[2017-02-02] MEDS ORDERED: METOPROLOL (XL) 25 MG TAB PO SCH (10:00)
[2017-02-02] MEDS ORDERED: INFLUENZA VIRUS VACCINE 0.5 ML SYG IM* ONE (12:30)
[2017-02-02] MEDS: LORAZEPAM 1 MG TAB PO PRN (14:07)
[2017-02-03] MEDS: traMADol 50 MG TAB PO PRN ×2 (00:54→22:16)
[2017-02-03] MEDS: ACETAMINOPHEN 1000MG/100ML IV 100 ML IVPB SCH ×3 (02:24→13:00)
[2017-02-03] MEDS: PANTOPRAZOLE (EC) 40 MG TAB PO SCH (05:44)
[2017-02-03] MEDS: LEVOTHYROXINE 50 MCG TAB PO SCH (05:44)
[2017-02-03 05:49] LABS: BASOPHILS % 0.1 % (0.0-2.0); EOSINOPHILS % 0.1 % (0.0-7.0); HEMATOCRIT 26.8 % (37.0-47.0); HEMOGLOBIN 8.9 g/dl (12.0-16.0); LYMPHOCYTES # 0.9 10^3/ul (0.8-2.9); LYMPHOCYTES % 8.9 % (15.0-51.0); MEAN CORPUSCULAR HEMOGLOBIN 31.2 pg (29.0-33.0); MEAN CORPUSCULAR HGB CONC 33.2 g/dl (32.0-37.0); MEAN PLATELET VOLUME 11.7 fl (7.4-10.4); MONOCYTES % 9.6 % (0.0-11.0); NEUTROPHIL # 8.5 10^3/ul (1.6-7.5); NEUTROPHILS % 80.7 % (39.0-77.0); PLATELET COUNT 235 10^3/UL (140-415); RED BLOOD COUNT 2.85 10^6/ul (4.20-5.40); WHITE BLOOD COUNT 10.6 10^3/ul (4.8-10.8)
[2017-02-03] MEDS: DEXAMETHASONE 4 MG/ML 1 ML INJ IV SCH (06:47)
--- NOTE | 2017-02-03 07:58 | PN ---
Date/Time of Note Date/Time of Note DATE: 02/03/17 TIME: 07:56 Assessment/Plan VTE Prophylaxis VTE Prophylaxis Intervention: ambulation, SCD's, other (Aspirin 325 mg twice daily) Lines/Catheters IV Catheter Type (from Nrsg): Peripheral IV Trevino in Place (from Nrsg): Yes Assessment/Plan Assessment/Plan -Pain Meds as needed -ASA for DVT Prophylaxis x 6 weeks outpatient discussed. -Continue monitoring as outpatient on discharge -Follow-up at scheduled postop outpatient appointment or sooner if there is any issue. -Hip precautions discussed -Patient Stable -Discharge to SNF Subjective 24 Hr Interval Summary 81-year-old female postop day 2 status post right total hip arthroplasty via anterior route. Patient has episodes of increased pain and episodes of relatively no pain complaints. Patient does state that she is very nervous with the whole process of surgery and rehabilitation. She denies any chest pain /tightness or shortness of breath. No calf pain. Has been continuing with PT and progressing. It was deemed that patient should be transferred to [facility] facility as opposed to returning home with home health due to lack of help in the house. Expected transfer today. Pain Control: moderate Exam/Review of Systems Vital Signs Vitals Vital Signs Date Time Temp Pulse Resp B/P Pulse Ox O2 Delivery O2 Flow Rate FiO2 02/02/17 07:30 98.0 61 19 141/67 98 02/01/17 15:10 Room Air 02/01/17 11:38 2.0 Intake and Output 02/02/17 02/02/17 02/03/17 15:00 23:00 07:00 Intake Total 160 ml 1840 ml 340 ml Balance 160 ml 1840 ml 340 ml Exam Free Text/Dictation -No complications with dressing intact. -Thigh soft -5/5 Quadriceps, Tibialis Anterior, EHL Gastrocnemius/Soleus and Peroneals -Normal Sensation -Palpable DP/PT, Capillary Refill <2 secs -No Distal Edema -Negative Johny Sign/No calf pain -Toes Freely Movable Constitutional: alert, oriented, well developed Results Result Diagram: 02/03/17 0503 02/02/17 0438 DARA GARZA PA-C Feb 03, 2017 07:58
[2017-02-03 08:37] VITALS: BP 134/68; RESP 19
--- NOTE | 2017-02-03 08:48 | CONS ---
Date/Time of Note Date/Time of Note DATE: 02/03/17 TIME: 08:45 Assessment/Plan Assessment/Plan Chief Complaint/Hosp Course 1. This patient is now two days postop a right total hip replacement. She is doing well. She will be transferred to a alf facility today. 2. Labile hypertension. Her blood pressure is coming under control. She will continue her current preop medication. 3. Hypothyroidism. She is on thyroid supplements. Problems: Consultation Date/Type/Reason Admit Date/Time Feb 01, 2017 at 05:54 24 HR Interval Summary Free Text/Dictation She is now 2 days postop a right total hip replacement. She is overall feeling better. Constitutional: improved Exam/Review of Systems Vital Signs Vitals Vital Signs Date Time Temp Pulse Resp B/P Pulse Ox O2 Delivery O2 Flow Rate FiO2 02/03/17 08:37 98.3 69 19 134/68 97 02/01/17 15:10 Room Air 02/01/17 11:38 2.0 Intake and Output 02/02/17 02/02/17 02/03/17 15:00 23:00 07:00 Intake Total 160 ml 1840 ml 340 ml Balance 160 ml 1840 ml 340 ml Exam Constitutional: alert, oriented, well developed ENMT: nl external ears & nose, nl lips & teeth, nl nasal mucosa & septum Respiratory: clear to auscultation, normal air movement Cardiovascular: regular rate and rhythm Gastrointestinal: non-tender, soft Musculoskeletal: nl extremities to inspection Results Result Diagram: 02/03/17 0503 02/02/17 0438 Results 24 hrs Laboratory Tests Test 02/03/17 05:03 White Blood Count 10.6 Red Blood Count 2.85 L Hemoglobin 8.9 L Hematocrit 26.8 L Mean Corpuscular Volume 94.0 Mean Corpuscular Hemoglobin 31.2 Mean Corpuscular Hemoglobin Concent 33.2 Red Cell Distribution Width 14.0 Platelet Count 235 Mean Platelet Volume 11.7 H Neutrophils % 80.7 H Lymphocytes % 8.9 L Monocytes % 9.6 Eosinophils % 0.1 Basophils % 0.1 Nucleated Red Blood Cells % 0.0 Neutrophils # 8.5 H Lymphocytes # 0.9 Monocytes # 1.0 H Eosinophils # 0.0 Basophils # 0.0 Nucleated Red Blood Cells # 0.0 Medications Medications Current Medications Dextrose/Lactated Ringer's (D5-Lr) 1,000 ml @ 80 mls/hr [id number] IV Last administered on 02/02/17 05:56; Admin Dose 80 MLS/HR; Start 02/01/17 at 10:22 Oxycodone HCl (Roxicodone) 20 mg Q3H PRN PO PAIN LEVEL 8-10; Start 02/01/17 at 10:30 Oxycodone HCl (Roxicodone) 10 mg Q3H PRN PO PAIN LEVEL 4-7; Start 02/01/17 at 10:30 Oxycodone HCl (Roxicodone) 5 mg Q3H PRN PO PAIN LEVEL 1-3 Last administered on 02/02/17 09:36; Admin Dose 5 MG; Start 02/01/17 at 10:30 Zolpidem Tartrate (Ambien) 5 mg HS PRN PO INSOMNIA; Start 02/01/17 at 10:30 Aspirin (Ecotrin) 325 mg BID PO Last administered on 02/02/17 09:27; Admin Dose 325 MG; Start 02/02/17 at 09:00 Celecoxib (Celebrex) 200 mg BID PO ; Start 02/02/17 at 09:00 Dexamethasone (Decadron) 4 mg DAILY@07 IV Last administered on 02/03/17 06:47 ; Admin Dose 4 MG; Start 02/02/17 at 07:00; Stop 02/05/17 at 06:59 Pantoprazole (Protonix Tab) 40 mg DAILY@06 PO Last administered on 02/03/17 05:44; Admin Dose 40 MG; Start 02/02/17 at 06:00 Docusate Sodium/ Ferrous Fumarate (Ron-Sequels) 1 tab BID PO Last administered on 02/02/17 09:27; Admin Dose 1 TAB; Start 02/02/17 at 09:00 Docusate Sodium (Colace) 200 mg BID PO Last administered on 02/02/17 09:27; Admin Dose 200 MG; Start 02/02/17 at 09:00; Stop 02/04/17 at 21:01 Simethicone (Mylicon) 80 mg TID PRN PO DISTENSION/GAS/BLOATING; Start at 10:30 Senna/Docusate Sodium (Senokot-S) 2 tab BID PRN PO CONSTIPATION; Start at 10:30 Magnesium Hydroxide (Milk Of Mag) 30 ml HS PRN PO CONSTIPATION; Start at 10:30 Bisacodyl (Dulcolax Supp) 10 mg DAILY PRN [place] CONSTIPATION; Start 02/01/17 at 10:30 Sodium Biphosphate/ Sodium Phosphate (Fleet Enema) 133 ml DAILY PRN [place] CONSTIPATION; Start 02/01/17 at 10:30 Diphenhydramine HCl (Benadryl) 25 mg Q4H PRN IM ITCHING OR RASH; Start at 10:30 Ketorolac Tromethamine (Toradol) 15 mg DAILY@06 PRN INJ ADMINSTER BY SURGEON ONLY; Start 02/02/17 at 06:00; Stop 02/06/17 at 05:59 Bupivacaine HCl/ Epinephrine Bitart (Marcaine 0.25%/ Epi (Sdv) 30 ml) 20 ml DAILY@06 PRN INJ ADMINSTER BY SURGEON ONLY; Start 02/02/17 at 06:00; Stop at 05:59 Naloxone HCl (Narcan) 0.2 mg Q2M PRN IV DECREASED REPIRATORY RATE; Start at 10:30 Gabapentin (Neurontin) 100 mg BID GTB Last administered on 02/02/17 09:27; Admin Dose 100 MG; Start 02/01/17 at 21:00; Stop 02/04/17 at 20:59 Lorazepam (Ativan) 1 mg BID PRN PO ANXIETY Last administered on 02/02/17 14: 07; Admin Dose 1 MG; Start 02/01/17 at 13:30 Metoprolol Succinate (Toprol Xl) 25 mg DAILY PO Last administered on 10:39; Admin Dose 25 MG; Start 02/02/17 at 10:00 Tramadol HCl 50 mg 50 mg Q6H PRN PO PAIN LEVEL 1-5 Last administered on 00:54; Admin Dose 50 MG; Start 02/02/17 at 16:30 Acetaminophen (Ofirmev 1000mg/ 100ml Iv) 100 ml @ 400 mls/hr Q8H IVPB Last administered on 02/03/17 05:09; Admin Dose 400 MLS/HR; Start 02/03/17 at 05: 00; Stop 02/03/17 at 13:14 ADRIA MELO MD Feb 03, 2017 08:48
[2017-02-03] MEDS: GABAPENTIN 100 MG CAP GTB SCH ×2 (09:42→20:57)
[2017-02-03] MEDS: ASPIRIN (EC) 325 MG TAB PO SCH ×2 (09:42→20:57)
[2017-02-03] MEDS: METOPROLOL (XL) 50 MG TAB PO SCH (09:42)
[2017-02-03] MEDS: FERROUS FUMARATE (SR) TAB PO SCH ×2 (09:42→20:57)
[2017-02-03] MEDS: CELECOXIB 200 MG CAP PO SCH ×2 (09:42→20:58)
[2017-02-03] MEDS: DOCUSATE SODIUM 100 MG CAP PO SCH ×2 (09:42→20:57)
[2017-02-03] MEDS: LORAZEPAM 1 MG TAB PO PRN ×2 (09:52→19:43)
[2017-02-03] MEDS: DEXTROSE 5%-LR 1,000 ML IV SCH (12:22)
[2017-02-03 15:30] VITALS: BP 161/73; RESP 20
[2017-02-03 20:40] VITALS: BP 162/86; RESP 18
[2017-02-04] MEDS: DEXTROSE 5%-LR 1,000 ML IV SCH ×2 (00:52→13:22)
[2017-02-04 02:40] VITALS: BP 139/66; RESP 18
[2017-02-04] MEDS ORDERED: VITAMIN A & D 5 GM OINT PACKET TOP ONE (04:00)
[2017-02-04] MEDS: LEVOTHYROXINE 50 MCG TAB PO SCH (06:27)
[2017-02-04] MEDS: PANTOPRAZOLE (EC) 40 MG TAB PO SCH (06:27)
[2017-02-04] MEDS: DEXAMETHASONE 4 MG/ML 1 ML INJ IV SCH (06:27)
[2017-02-04 08:06] VITALS: BP 165/79; RESP 18
[2017-02-04] MEDS: CELECOXIB 200 MG CAP PO SCH (09:00)
[2017-02-04] MEDS: GABAPENTIN 100 MG CAP GTB SCH (09:00)
[2017-02-04] MEDS: traMADol 50 MG TAB PO PRN (09:02)
[2017-02-04] MEDS: FERROUS FUMARATE (SR) TAB PO SCH (09:03)
[2017-02-04] MEDS: DOCUSATE SODIUM 100 MG CAP PO SCH (09:03)
[2017-02-04] MEDS: ASPIRIN (EC) 325 MG TAB PO SCH (09:03)
[2017-02-04] MEDS: METOPROLOL (XL) 50 MG TAB PO SCH (09:04)
[2017-02-04 09:37] LABS: BASOPHILS % 0.1 % (0.0-2.0); EOSINOPHILS % 0.2 % (0.0-7.0); HEMOGLOBIN 9.2 g/dl (12.0-16.0); LYMPHOCYTES # 0.9 10^3/ul (0.8-2.9); MEAN CORPUSCULAR HEMOGLOBIN 30.1 pg (29.0-33.0); MEAN CORPUSCULAR HGB CONC 31.7 g/dl (32.0-37.0); MEAN CORPUSCULAR VOLUME 94.8 fl (82.0-101.0); MEAN PLATELET VOLUME 11.3 fl (7.4-10.4); MONOCYTE # 0.6 10^3/ul (0.3-0.9); MONOCYTES % 4.6 % (0.0-11.0); NEUTROPHIL # 10.8 10^3/ul (1.6-7.5); NEUTROPHILS % 86.8 % (39.0-77.0); PLATELET COUNT 265 10^3/UL (140-415); RED BLOOD COUNT 3.06 10^6/ul (4.20-5.40); RED CELL DISTRIBUTION WIDTH 14.2 % (11.5-14.5); WHITE BLOOD COUNT 12.5 10^3/ul (4.8-10.8)
[2017-02-04] MEDS: LORAZEPAM 1 MG TAB PO PRN (12:37)
[2017-02-04 13:00] VITALS: BP 155/65; PULSE 67
[2017-02-04] MEDS: oxyCODONE 5 MG TAB PO PRN (13:30)
--- NOTE | 2017-02-04 13:32 | CONS ---
Date/Time of Note Date/Time of Note DATE: 02/04/17 TIME: 13:29 Assessment/Plan Assessment/Plan Additional Assessment/Plan 1. This patient is now two days postop a right total hip replacement. She is doing well. She will be transferred to a senior living facility today. 2. Labile hypertension. Her blood pressure is coming under control. She will continue her current preop medication. 3. Hypothyroidism. She is on thyroid supplements. 4. Anxiety about pain, explained pain medication use and constipation. patient appreciative stable for discharge to snf from medicine [facility] for Dr. Hernandez Consultation Date/Type/Reason Admit Date/Time Feb 01, 2017 at 05:54 Initial Consult Date Exam/Review of Systems Vital Signs Vitals Vital Signs Date Time Temp Pulse Resp B/P Pulse Ox O2 Delivery O2 Flow Rate FiO2 02/04/17 08:06 98.2 65 18 165/79 96 02/01/17 15:10 Room Air 02/01/17 11:38 2.0 Intake and Output 02/03/17 02/03/17 02/04/17 15:00 23:00 07:00 Intake Total 840 ml 500 ml Balance 840 ml 500 ml Exam Constitutional: alert, oriented Head: atraumatic, normocephalic Eyes: EOMI, nl conjunctiva Neck: supple Respiratory: clear to auscultation, normal air movement Cardiovascular: regular rate and rhythm Gastrointestinal: nl liver, spleen, soft Genitourinary - Female: nl adnexae Musculoskeletal: nl extremities to inspection Results Result Diagram: 02/04/17 0912 02/02/17 0438 Results 24 hrs Laboratory Tests Test 02/04/17 09:12 White Blood Count 12.5 H Red Blood Count 3.06 L Hemoglobin 9.2 L Hematocrit 29.0 L Mean Corpuscular Volume 94.8 Mean Corpuscular Hemoglobin 30.1 Mean Corpuscular Hemoglobin Concent 31.7 L Red Cell Distribution Width 14.2 Platelet Count 265 Mean Platelet Volume 11.3 H Neutrophils % 86.8 H Lymphocytes % 7.0 L Monocytes % 4.6 Eosinophils % 0.2 Basophils % 0.1 Nucleated Red Blood Cells % 0.0 Neutrophils # 10.8 H Lymphocytes # 0.9 Monocytes # 0.6 Eosinophils # 0.0 Basophils # 0.0 Nucleated Red Blood Cells # 0.0 Medications Medications Current Medications Dextrose/Lactated Ringer's (D5-Lr) 1,000 ml @ 80 mls/hr [id number] IV Last administered on 02/02/17 05:56; Admin Dose 80 MLS/HR; Start 02/01/17 at 10:22 Oxycodone HCl (Roxicodone) 20 mg Q3H PRN PO PAIN LEVEL 8-10; Start 02/01/17 at 10:30 Oxycodone HCl (Roxicodone) 10 mg Q3H PRN PO PAIN LEVEL 4-7 Last administered on 02/04/17 03:12; Admin Dose 10 MG; Start 02/01/17 at 10:30 Oxycodone HCl (Roxicodone) 5 mg Q3H PRN PO PAIN LEVEL 1-3 Last administered on 02/02/17 09:36; Admin Dose 5 MG; Start 02/01/17 at 10:30 Zolpidem Tartrate (Ambien) 5 mg HS PRN PO INSOMNIA; Start 02/01/17 at 10:30 Aspirin (Ecotrin) 325 mg BID PO Last administered on 02/04/17 09:03; Admin Dose 325 MG; Start 02/02/17 at 09:00 Celecoxib (Celebrex) 200 mg BID PO Last administered on 02/03/17 09:42; Admin Dose 200 MG; Start 02/02/17 at 09:00 Dexamethasone (Decadron) 4 mg DAILY@07 IV Last administered on 02/04/17 06:27 ; Admin Dose 4 MG; Start 02/02/17 at 07:00; Stop 02/05/17 at 06:59 Pantoprazole (Protonix Tab) 40 mg DAILY@06 PO Last administered on 02/04/17 06:27; Admin Dose 40 MG; Start 02/02/17 at 06:00 Docusate Sodium/ Ferrous Fumarate (Ron-Sequels) 1 tab BID PO Last administered on 02/04/17 09:03; Admin Dose 1 TAB; Start 02/02/17 at 09:00 Docusate Sodium (Colace) 200 mg BID PO Last administered on 02/04/17 09:03; Admin Dose 200 MG; Start 02/02/17 at 09:00; Stop 02/04/17 at 21:01 Simethicone (Mylicon) 80 mg TID PRN PO DISTENSION/GAS/BLOATING Last administered on 02/03/17 09:42; Admin Dose 80 MG; Start 02/01/17 at 10:30 Senna/Docusate Sodium (Senokot-S) 2 tab BID PRN PO CONSTIPATION; Start at 10:30 Magnesium Hydroxide (Milk Of Mag) 30 ml HS PRN PO CONSTIPATION; Start at 10:30 Bisacodyl (Dulcolax Supp) 10 mg DAILY PRN [place] CONSTIPATION; Start 02/01/17 at 10:30 Sodium Biphosphate/ Sodium Phosphate (Fleet Enema) 133 ml DAILY PRN [place] CONSTIPATION; Start 02/01/17 at 10:30 Diphenhydramine HCl (Benadryl) 25 mg Q4H PRN IM ITCHING OR RASH; Start at 10:30 Ketorolac Tromethamine (Toradol) 15 mg DAILY@06 PRN INJ ADMINSTER BY SURGEON ONLY; Start 02/02/17 at 06:00; Stop 02/06/17 at 05:59 Bupivacaine HCl/ Epinephrine Bitart (Marcaine 0.25%/ Epi (Sdv) 30 ml) 20 ml DAILY@06 PRN INJ ADMINSTER BY SURGEON ONLY; Start 02/02/17 at 06:00; Stop at 05:59 Naloxone HCl (Narcan) 0.2 mg Q2M PRN IV DECREASED REPIRATORY RATE; Start at 10:30 Gabapentin (Neurontin) 100 mg BID GTB Last administered on 02/03/17 20:57; Admin Dose 100 MG; Start 02/01/17 at 21:00; Stop 02/04/17 at 20:59 Lorazepam (Ativan) 1 mg BID PRN PO ANXIETY Last administered on 02/04/17 12: 37; Admin Dose 1 MG; Start 02/01/17 at 13:30 Tramadol HCl (Ultram) 50 mg Q6H PRN PO PAIN LEVEL 1-5 Last administered on 09:02; Admin Dose 50 MG; Start 02/02/17 at 16:30 Metoprolol Succinate (Toprol Xl) 50 mg DAILY PO Last administered on 09:04; Admin Dose 50 MG; Start 02/03/17 at 09:00 JEANINE TIM MD Feb 04, 2017 13:32
[2017-02-04 15:20] VITALS: BP 169/79; RESP 20
--- NOTE | 2017-02-06 09:08 | DS ---
Date/Time of Note Date/Time of Note DATE: 02/06/17 TIME: 09:06 Discharge Summary Admission/Discharge Info Admit Date/Time Feb 01, 2017 at 05:54 Discharge Date/Time Feb 04, 2017 at 15:45 Discharge Diagnosis Status post right total hip arthroplasty via anterior row Patient Condition: Good Hospital Course On the day of admission, the patient underwent Right total hip arthroplasty via anterior route Intraoperative complications: None Postoperative complications: None The patient was given prophylactic antibiotics and anticoagulants. On the day of surgery and first postoperative day patient was started on gait training and was taught usual restrictions following Anterior hip replacement On postoperative day 1 dressing was clean dry and intact. No complications were observed. On the day of discharge, the wound was clean and healing well; there was no sign of infection. Wound care instructions were discussed with the patient. Discharge Temperature: 98.5 Discharge White Blood Cell Count: 12.5 Discharge Hemoglobin: 9.2 The patient was discharged [facility] facility. Arrangements were made for visiting nurses and home health/physical therapy. The patient will be seen in office at scheduled postoperative evaluation date given on their preoperative exam. Should patient complain of any problems prior to scheduled postoperative evaluation date, they may call into outpatient clinic to determine if they need to be scheduled at sooner appointment to be seen immediately if needed. Discharge medications: As per medication reconciliation form Diet: Same as preadmission diet. This is Dara Rust PA-C dictating discharge summary for []. Home Meds Reported Medications Acetaminophen* (Tylophen*) 500 Mg Capsule, 500 MG PO Q6H Y for PAIN AND/OR INFLAMMATION, TAB 02/01/17 Tramadol HCl (Tramadol HCl) 50 Mg Tablet, 50 MG PO Q6H Y for PAIN LEVEL 6-10, # 120 TAB 02/01/17 Metoprolol Succinate* (Toprol XL*) 50 Mg Tab.er.24h, 50 MG PO DAILY, #30 TAB 02/01/17 Diphenhydramine Hcl* (Benadryl*) 25 Mg Cap, 25 MG PO Q6H Y for ITCHING, CAP 02/01/17 Lorazepam* (Lorazepam*) 1 Mg Tablet, 1 MG PO BID Y for ANXIETY, #30 TAB 02/01/17 Levothyroxine Sodium* (Levothyroxine Sodium*) 50 Mcg Tablet, 50 MCG PO BEFORE BREAKFAST, #30 TAB 02/01/17 Follow-up Plan Follow-up in 10-14 days at postoperative appointment provided at your preoperative examination. Primary Care Provider Not On Staff Doctor DARA GARZA PA-C Feb 06, 2017 09:08
== END 2017-02-04 15:45 | DRG 470 ==
LOC: REC 05:54 → MS1 12:06
PROVIDERS: ADMIT Orthopaedic Surgery Adult Reconstructive Orthopaedic Surgery; ATTEND Orthopaedic Surgery Adult Reconstructive Orthopaedic Surgery
PROC: 8E0YXBZ Computer Assisted Procedure of Lower Extremity (ICD-10-PCS; 2017-02-01)
PROC: 0SR904Z Replacement of Right Hip Joint with Ceramic on Polyethylene Synthetic Substitute, Open Approach (ICD-10-PCS; principal; 2017-02-01 07:30)
DX: M16.11 Unilateral primary osteoarthritis, right hip (principal); I10 Essential (primary) hypertension; F41.9 Anxiety disorder, unspecified; E03.9 Hypothyroidism, unspecified
CPT/HCPCS: 72170; 73500; 73530; 80053; 85025; 86850; 86900; 86901; 86920; 87086; 88304; 88311; 90686; 97110; 97116; 97163; 97165; 97530; J1940; C1776; J0131; J0171; J0360; J0690; J0697; J0735; J1100; J1170; J1885; J2175; J2250; J2274; J2405; J2710; J2795; J3010; J7121

== ENCOUNTER → 2017-02-16 | Outpatient (CLI) | payer MEDICARE, BC ==
--- NOTE | 2017-02-16 19:50 | HKNOTE ---
DATE OF SERVICE: DATE OF SURGERY: 02/01/2017 HISTORY OF PRESENT ILLNESS: Mr. Lucero returns today for her orthopedic evaluation. She is curre ntly 2 weeks status post right total hip arthroplasty. She is doing well. She is at [facility]. She is using a walker for ambulation. She is taking aspirin twice daily for DVT prophylaxis. She has no pain. She is very satisfied with her surgery. She has no ot her complaints. PHYSICAL EXAMINATION: Right hip incision has healed. No drainage. external rotation. Intac t sensation in distribution of the lateral femoral cutaneous nerve. Function 5/5 of quadriceps, ham strings, tibialis anterior, gastrocsoleus. X-RAYS: Two views of the right hip demonstrate that the prosthesis is in acceptable alignment. The re are no fractures or dislocations. No subsidence. IMPRESSION: An 81-year-old female 2 weeks status post right total hip arthroplasty. PLAN: She will be weightbearing as tolerated. She will continue aspirin twice daily for DVT prophy laxis for an additional 4 weeks. She will follow up in 3 months. Dictated By: CANDIS LEOS/CHASIDY Conf#: [id number] DID#: [id number]
== END | disposition home or self-care (01) ==
LOC: HKI 14:19
PROVIDERS: ATTEND Orthopaedic Surgery Adult Reconstructive Orthopaedic Surgery
DX: Z47.1 Aftercare following joint replacement surgery (principal); Z96.643 Presence of artificial hip joint, bilateral

== ENCOUNTER → 2017-05-08 | Outpatient (CLI) | END | disposition home or self-care (01) ==